=== PATIENT | male | born 1945 | race Caucasian/White ===

== ENCOUNTER 2016-05-27 10:13 | Outpatient (CLI) | payer MEDICARE, OTHER | END 2016-05-27 10:14 | disposition home or self-care (01) | DX: G47.33 Obstructive sleep apnea (adult) (pediatric) (principal) | CPT/HCPCS: 99214; G0463 ==

== ENCOUNTER 2017-06-16 10:17 | Outpatient (CLI) | payer MEDICARE, OTHER | END 2017-06-16 10:18 | disposition home or self-care (01) | LOC: SC 10:17 | PROVIDERS: ATTEND Nurse Practitioner Family | DX: G47.33 Obstructive sleep apnea (adult) (pediatric) (principal) | CPT/HCPCS: 99214; G0463; 99212 ==

== ENCOUNTER 2017-08-18 10:20 | Outpatient (CLI) | payer MEDICARE, OTHER | END 2017-08-18 10:21 | disposition home or self-care (01) | LOC: SC 10:20 | PROVIDERS: ATTEND Nurse Practitioner Family | DX: G47.33 Obstructive sleep apnea (adult) (pediatric) (principal) | CPT/HCPCS: 99214; G0463; 99212 ==

== ENCOUNTER 2018-11-01 10:33 | Outpatient (CLI) | payer MEDICARE, OTHER | END 2018-11-01 10:34 | disposition home or self-care (01) | LOC: SC 10:33 | PROVIDERS: ATTEND Nurse Practitioner Family | DX: G47.33 Obstructive sleep apnea (adult) (pediatric) (principal) | CPT/HCPCS: 99214; G0463; 99212 ==

== ENCOUNTER 2019-03-20 09:20 | Outpatient (CLI) | payer MEDICARE, OTHER ==
--- NOTE | 2019-03-20 14:03 | CT Report ---
Reason: CHRONIC SINUSITIS Procedure Date: 03/20/2019 Accession Number: [id number] / [id number] Procedure: CT - Sinuses CPT Code: Final Report FULL RESULT: EXAM: CT SINUS EXAM DATE: 03/20/2019 09:56 AM. HISTORY: 74-year-old with chronic sinusitis type symptoms. Evaluate for sinus pathology. COMPARISONS: SINUS 11/03/2007 8:29 AM. TECHNIQUE: Routine multi-axial CT imaging performed through the sinuses. Iodinated IV contrast: None. Reconstructions: Multiplanar reformats. In accordance with CT protocol optimization, one or more of the following dose reduction techniques were utilized for this exam: automated exposure control, adjustment of mA and/or KV based on patient size, or use of iterative reconstructive technique. FINDINGS: RIGHT Frontal: Normal. Ethmoid: Mild mucosal thickening. Maxillary: Mild mucosal thickening. Sphenoid: Moderate mucosal retention cyst versus polyp with mild mucosal thickening. There is hyperdensity seen within the mucosal retention cyst or polyp. Drainage Pathways: There is obstruction of the sphenoethmoidal recess. There is minimal mucosal thickening of the frontal recess and ostiomeatal unit. LEFT Frontal: Normal. Ethmoid: Minimal mucosal thickening. Maxillary: Small maxillary mucosal retention cyst versus polyp with mild mucosal thickening. There is hyperostosis of the farfan of the maxillary sinus. Sphenoid: Normal. Drainage Pathways: Post surgical changes of maxillary antrostomy and uncinectomy. Visualized major paranasal sinus change pathways appear patent. Nasal Cavity: There is a small right and moderate-sized left nael bullosa. There appears to be opacification of the right nael bullosa with minimal mucosal thickening of the left nael bullosa. There is rightward bowing of the bony nasal septum. Osseous Structures: Unremarkable. Orbits: Unremarkable. Other: Punctate calcification seen within the right paramedian frontal scalp (series 3, image 108). IMPRESSION: 1. There appear to be postsurgical changes of prior left maxillary antrostomy and uncinectomy. 2. There is moderate right and small left maxillary mucosal retention cyst versus polyps. 3. There is mild mucosal thickening of the right ethmoid air cells, right sphenoid sinus, bilateral maxillary sinuses. There is minimal mucosal thickening of the left ethmoid air cells. 4. There is mucosal obstruction of the right sphenoethmoidal recess. RADIA
== END 2019-03-20 09:21 | disposition home or self-care (01) ==
LOC: DI 09:20
PROVIDERS: ATTEND Family Medicine
DX: J34.89 Other specified disorders of nose and nasal sinuses (principal); J32.4 Chronic pansinusitis
CPT/HCPCS: 70486

== ENCOUNTER 2019-05-03 13:12 | Outpatient (CLI) | payer MEDICARE, OTHER ==
[2019-05-03 14:11] VITALS: BP 130/70
--- NOTE | 2019-05-03 14:11 | SLEEP CARE CONSULTATION ---
Information from patient questionnaire entered by Kelin Angulo. I have reviewed and concur with the information entered by Kelin Angulo. This document represents the service I personally performed and the decisions made by me, Yamilet Bingham, RN, MSN, TRANSMITTER ENGINEER IN CHARGE. History of Present Illness Previous diagnosis: Mild, Obstructive Sleep Apnea-Hypopnea Syndrome AHI: 5.1 Reason for follow up: six month Equipment type: CPAP Equipment obtained from: [facility] Mask style: Full face Mask brand: Resmed (Air Touch) Backup mask available: Yes Last cushion change: a month ago CPAP Compliance Data - Data Reviewed with Patient Average duration of nightly device use: 8.45 Compliance rate %: 99.4 (180 days) Current pressure setting (cmH2O): 15-20 Humidity settin Heated hose settin Average residual AHI: 1.9 Average large leak: 30 sec Subjective Patient concerns: reports: air blowing in eyes, other (Water under eyes (bags) - saw eye doctor and wonders if due to pressure/ also saw metallurgical technician to see if allergies). denies: aerophagia, mask discomfort, mask leak noise, condensation in mask/hose, nasal congestion, dry mouth, nose, throat, epistaxis Observed to snore while using device: No Current pressure setting perceived as: too high (a few times a week) On therapy, patient: reports: sleeping better, awakening more refreshed, being more awake and alert during the day, more rested overall. denies: drowsiness while driving Initial [place] Sleepiness Scale score: 8 Current [place] Sleepiness Scale score: 4 Allergies and Home Medications Known drug allergies: No Home medication list reviewed: Yes (same as last visit except stopped Nystatin, trimincinolone and Fish oil ) Allergy and home medication list: Medication Name (generic/name brand) Strength & Dosage Losartan Potassium 100 mg tab one daily Montelukast Sodium 10mg tab one daily Atorvastatin 10mg tab daily Vitamin D 3 1000 units daily Vitamin B-12 1000mcg tab one daily Glucosamine Sulfate 500mg tab 3 BID Medial Marijuana, topical Use as needed Olopatadine 0.2% eye drops One drop daily to affected eyes Fluticasone Propionate 50mcg/inh 2 nasal inhalations daily azelastine nasal spray aerosol 137mcg daily Review of Systems Review of systems same as previous: Yes Physical Exam Blood Pressure: 130/70 Cuff size: long Heart Rate: 63 O2 Saturation: 97 Height: 5 ft 8 in Weight: 236 lb 9.6 oz Body Mass Index: 35.9 BMI Classification: Obesity Class 2 Impression and Plan 1. Obstructive Sleep Apnea-Hypopnea Syndrome, mild but severe supine, with good treatment compliance and good apnea control. On CPAP therapy, the patient has better sleep quality and is more rested overall. For his edema noted under eyes after using CPAP, I fitted him with an Camilla View large full face mask. He is not due for a new mask until June. The edema could be from over tightening of his Air Touch mask and its placement close to eye reducing circulation. He sleeps on left side and edema generally worse on left. This mask sits lower and with use of CPAP pillow should have less pressure below eyes. Spouse has noted significant mask steinberg on face when he takes off mask. Patient cautioned not to over tighten mask with rationale explained. Prescription given specific to mask for replacement. If this mask is no better, he is to request a mask refitting before his next headgear due in June. He has seen both the metallurgical technician thinking it was allergies and his eye doctor who prescribed exercises. Since the pressure is too high sometimes and he seems to be using lower range, I will reduce his CPAP pressure to [id number]. He is to call me if pressure change uncomfortable or more sleep paralysis when sleeping supine. Patient's apnea severity and rationale for treatment to reduce apnea, improve sleep quality and reduce cardiovascular and cerebrovascular events was reviewed. I also reviewed the benefit of consistent device use of CPAP for hypertension. Since his apnea is more severe supine, he is advised to avoid sleep if unable to use CPAP with pillow positioning. * * Change CPAP pressure to 14-16 cmH2O * Try Camilla View mask * Do not over tighten mask * Notify me if snoring with mask or feeling that the pressure is too much or too little * Attempt to lose weight * Call this office if any problems using CPAP * Return for follow up in 1 year, or sooner if concerns arise Time Spent with Patient (minutes): 35 I spent 100% of this visit face to face with the patient with greater than 50% of this was spent time counseling the patient and coordination of care.
== END 2019-05-03 13:13 | disposition home or self-care (01) ==
LOC: SC 13:12
PROVIDERS: ATTEND Nurse Practitioner Family
DX: G47.33 Obstructive sleep apnea (adult) (pediatric) (principal); E66.9 Obesity, unspecified; Z68.35 Body mass index [BMI] 35.0-35.9, adult
CPT/HCPCS: 99214; G0463; 99212

== ENCOUNTER 2020-04-30 13:15 | Outpatient (CLI) | payer MEDICARE, OTHER ==
--- NOTE | 2020-04-30 11:01 | SLEEP CARE CONSULTATION ---
Information from patient questionnaire entered by Kelin Angulo. I have reviewed and concur with the information entered by Kelin Angulo. This document represents the service I personally performed and the decisions made by me, Yamilet Bingham, RN, MSN, NETWORK ANALYST. History of Present Illness Service Date and Time: 04/30/2020 1030 Previous diagnosis: Mild, Obstructive Sleep Apnea-Hypopnea Syndrome AHI: 5.1 (in 2011) Reason for follow up: annual (last seen 04/2019) Equipment type: CPAP Equipment obtained from: [facility] (getting supplies as needed) Mask style: Full face Backup mask available: Yes (old mask) Last cushion change: 10 days ago Prior sleep studies: Yes Year and Where: 2011 - [facility] Type of Sleep Study: Polysomnography CPAP Compliance Data - Data Reviewed with Patient Average duration of nightly device use: 9 hr 15 min Compliance rate %: 97.8 (180 days) Current pressure setting (cmH2O): 14-16 Humidity settin Heated hose settin Average residual AHI: 1.8 Average large leak: 34 sec Subjective Patient concerns: reports: aerophagia (once a week), dry mouth, nose, throat (none now after adjusting humidity). denies: mask discomfort, air blowing in eyes, mask leak noise, condensation in mask/hose, nasal congestion, epistaxis Observed to snore while using device: No Current pressure setting perceived as: comfortable On therapy, patient: reports: sleeping better, awakening more refreshed, being more awake and alert during the day, more rested overall. denies: drowsiness while driving Initial [place] Sleepiness Scale score: 7 (in 2011) Current [place] Sleepiness Scale score: 7 Allergies and Home Medications Known drug allergies: No Home medication list reviewed: Yes (added tamulosin HS ) Review of Systems Review of systems same as previous: No (sinus surgery July 2019 with better nasal breathing) Physical Exam Height: 5 ft 8 in Weight: 210 lb (lost 25 pounds ) Body Mass Index: 31.9 BMI Classification: Obese Impression and Plan 1. Obstructive Sleep Apnea-Hypopnea Syndrome, mild with very severe apnea supine, with fair treatment compliance and good apnea control. On CPAP therapy, the patient has better sleep quality and is more rested overall. To reduce symptoms of aerophagia, the CPAP pressure will be reduced to 12- 14 cmH2O. Patient advised to contact me if this does not reduce symptoms or if pressure change uncomfortable. Patient has lost weight which has probably contributed to his aerophagia . Currently patients BMI is 35.9 obesity class . Obesity increases the risk of apnea, CPAP pressure requirements and overall health risks especially cardiovascular and diabetes. Thus patient is advised to continue to lose weight. Weight loss can be done with reducing portion size, reducing refined foods and balancing content with vegetables, fruit and protein. In addition tracking food intake will allow awareness of how to modify diet to achieve weight loss goals. Also eating more slowly will allow more awareness of food intake and enjoyment of food while assisting patient to modify intake at each meal. A diet consultation can be helpful in achieving optimal weight loss goals. Patient encouraged to discuss their weight loss goals with their PCP and consider a referral to a inside barrel lathe operator. The patient's auto CPAP pressure was changed to 12-14 cmH2O to accommodate future weight loss. Symptoms to report for additional pressure adjustment discussed. Patient's apnea severity and rationale for treatment to reduce apnea, improve sleep quality and reduce cardiovascular and cerebrovascular events was reviewed. I also reviewed the benefit of consistent device use of CPAP for hypertension. Since patient has more severe apnea in supine position, patient advised to avoid supine sleep with pillow positioning if unable to use CPAP while ill or if without electricity to reduce apnea risk.He uses a So Clean device for his CPAP equipment.Thus he was informed of FDA warning and how to find online. He is advised to stop using the heavy cleaner and use usual cleaning routine. * * Changeauto CPAP pressure to 12- 14 cmH2O * Notify me if snoring with mask or feeling that the pressure is too much or too little * Stop So Clean * avoid supine sleep if unable to use CPAP. * Consider a diet consultation * Continue to lose weight * Call this office if any problems using CPAP * Return for follow up in 1 year , or sooner if concerns arise Follow up recommended for: Weight management Visit Type: Telehealth Phone ([facility]) Patient Location: Home Other Participants: Spouse/Significant Other Location of Provider: Home Patient agrees and consents to this telehealth visit type: Yes Patient agrees to have their insurance billed: Yes Time Spent with Patient (minutes): 24 and 6 minutes documentation after visit. Provider Statement: I spent 100% of the Telehealth Phone Call with the patient with greater than 50% spent counseling the patient and coordination of care.
== END 2020-04-30 13:16 | disposition home or self-care (01) ==
LOC: SC 13:15
PROVIDERS: ATTEND Nurse Practitioner Family
DX: G47.33 Obstructive sleep apnea (adult) (pediatric) (principal); E66.9 Obesity, unspecified; Z68.31 Body mass index [BMI] 31.0-31.9, adult

== ENCOUNTER 2021-02-10 10:43 | Outpatient (CLI) | payer MEDICARE, OTHER ==
--- NOTE | 2021-02-10 11:40 | SLEEP CARE CONSULTATION ---
Information from patient questionnaire entered by Mart Trevino MA. I have reviewed and concur with the information entered by Mart Trevino MA. This document represents the service I personally performed and the decisions made by , Patsy Melendez ARNP. History of Present Illness Service Date and Time: 02/10/2021 1043 Previous diagnosis: Mild, Obstructive Sleep Apnea-Hypopnea Syndrome AHI: 5.1 (in 2011) Reason for follow up: other (10 month wants new mask (nasal)) Equipment type: CPAP Equipment obtained from: [facility] (getting supplies as needed) Mask style: Full face Backup mask available: Yes (old mask) Last cushion change: 2.5 weeks Prior sleep studies: Yes Year and Where: 2011 - [facility] Type of Sleep Study: Polysomnography HPI additional information: KATHY KO was diagnosed to have mild, AHI 5.1, obstructive sleep apnea- hypopnea syndrome and returned today with spouse for CPAP therapy 10 month follow-up. Sleep Study - Results Type of Sleep Study: Polysomnography Prior sleep studies: Yes Year and Where: 2011 - [facility] CPAP Compliance Data - Data Reviewed with Patient Average duration of nightly device use: 8 hours 49 minutes Compliance rate %: 100 Current pressure setting (cmH2O): 12 - 14 Humidity settin Heated hose settin Average residual AHI: 1.3 Average large leak: 40 seconds Subjective Missed days of use due to: reports: other (power outage) Patient concerns: reports: air blowing in eyes (his eyes are dry and puffy in the morning), mask leak noise. denies: aerophagia, mask discomfort, condensation in mask/hose, nasal congestion, dry mouth, nose, throat, epistaxis, other Observed to snore while using device: No Current pressure setting perceived as: comfortable On therapy, patient: reports: sleeping better, awakening more refreshed, being more awake and alert during the day, more rested overall, other (has pain issues at night that wakes him up). denies: drowsiness while driving Initial [place] Sleepiness Scale score: 7 (in 2012) Current [place] Sleepiness Scale score: 11 Allergies and Home Medications Home medication list reviewed: Yes (changes) Review of Systems Review of systems same as previous: Yes (no changes) Physical Exam Vital signs obtained and entered by: Jessee Trevino CMA Blood Pressure: 133/73 (left) Cuff size: wrist Heart Rate: 73 O2 Saturation: 97 Height: 5 ft 8 in Weight: 220 lb 0.271 oz Body Mass Index: 33.4 BMI Classification: Obese Impression and Plan 1. Obstructive Sleep Apnea-Hypopnea Syndrome, mild, with excellent treatment compliance and good apnea control. On CPAP therapy, the patient has better sleep quality and is more rested overall. Patient had surgery on his nose so he can breathe through it better. He has had lots of issues with air blowing into his eyes with current mask and his eyes feeling dry and swollen. He saw an ENT specialist who said he had air trapped in his eyes possibly due to his CPAP. Patient has been using a full face mask and would like to try a nasal pillow type of mask. He also will need a chin strap because he usually sleeps with mouth open. I will write for a mask refitting for a nasal pillow style and a chin strap. I informed the patient that [employer] has a recall on several devices like the patients machine. Patient was encouraged to register their device online with [employer] for the recall to see if their device is affected. If their device is affected they should start a claim. Patient denies any black particles seen in machine or hoses, any unusual odors coming from device. Patient has not experienced any physical symptoms such as upper airway irritation, headache, skin or eye irritation, asthma, nausea/vomiting, difficulty breathing or chest pain. If patient is not able to sleep due to waking up choking, gasping for air or other respiratory distress that they may decide to continue using it until it is either replaced or repaire d. Patient has an older device that may not be on the recall that he may switch to using in the meantime. Patient voiced understanding and agreement with plan. Patient's apnea severity and rationale for treatment to reduce apnea, improve sleep quality and reduce cardiovascular and cerebrovascular events was reviewed. I also reviewed the benefit of consistent device use of CPAP for hypertension. Patient was encouraged to lose weight for their overall health and to reduce apneas. * Continue auto CPAP pressure at 12-14 cmH2O * Try nasal pillows mask with chin strap * Patient to register his device with [employer] for recall * Patient has older device that he will see if he can use until his device is replaced * Mask refitting for nasal mask * Notify me if snoring with mask or feeling that the pressure is too much or too little * Attempt to lose weight * Call this office if any problems using CPAP * Return for follow up in 1 year, or sooner if concerns arise Counseling Topics: Spare mask, Weight loss health impact Visit Type: In Office Other Participants: Spouse/Significant Other Time Spent with Patient (minutes): 24 Provider Statement: I spent 100% of the Face to Face Visit with the patient with greater than 50% spent counseling the patient and coordination of care.
[2021-02-10 11:41] VITALS: BP 133/73
== END 2021-02-10 10:44 | disposition home or self-care (01) ==
LOC: SC 10:43
PROVIDERS: ATTEND Nurse Practitioner Family
DX: G47.33 Obstructive sleep apnea (adult) (pediatric) (principal); E66.9 Obesity, unspecified; Z68.33 Body mass index [BMI] 33.0-33.9, adult
CPT/HCPCS: 99213; G0463; 99212

== ENCOUNTER 2022-03-16 12:43 | Outpatient (CLI) | payer MEDICARE, OTHER ==
[2022-03-16 13:23] VITALS: BP 126/70
--- NOTE | 2022-03-16 13:23 | SLEEP CARE CONSULTATION ---
Information from patient questionnaire entered by Francesca Arboleda. I have reviewed and concur with the information entered by Francesca Arboleda. This document represents the service I personally performed and the decisions made by me, Patsy Melendez ARNP. History of Present Illness Service Date and Time: 03/16/2022 1243 Previous diagnosis: Mild, Obstructive Sleep Apnea-Hypopnea Syndrome AHI: 5.1 (in 2011) Reason for follow up: annual (LAST SEEN 02/2021) Accompanied by: Spouse Equipment type: CPAP (Dreamstation 2) Equipment obtained from: Other ([facility]; getting supplies as needed) Mask style: Nasal pillows Backup mask available: Yes (old mask) Last cushion change: 1 week Prior sleep [facility]: Yes [facility] and [facility] Type of Sleep Study: Polysomnography HPI additional information: KATHY KO was diagnosed to have mild, AHI 5.1, obstructive sleep apnea- hypopnea syndrome and returned today for CPAP therapy annual follow-up. Sleep Study - Results Type of Sleep Study: Polysomnography Prior sleep studies: Yes Year and Where: [facility] CPAP Compliance Data - Data Reviewed with Patient Average duration of nightly device use: 9 HRS, 2 MIN 42SEC Compliance rate %: 98.9 (09/15/21-03/13/22; 178/180 days used) Current pressure setting (cmH2O): 12-12 Average residual AHI: 0.7 Central apnea: 0.2 Obstructive apnea: 0.1 Subjective Missed days of use due to: reports: other (power outage) Patient concerns: reports: mask discomfort, air blowing in eyes (wearing sleeping mask), dry mouth, nose, throat, other (slight nares sorness). denies: aerophagia, mask leak noise, condensation in mask/hose, nasal congestion, epistaxis Observed to snore while using device: No Current pressure setting perceived as: comfortable On therapy, patient: reports: sleeping better, awakening more refreshed, being more awake and alert during the day, more rested overall. denies: drowsiness while driving Initial [place] Sleepiness Scale score: 7 (in 2011) Current [place] Sleepiness Scale score: 10 (03/16/2022) Allergies and Home Medications Drug allergies reviewed: Yes (NKDA) Home medication list reviewed: Yes (no changes) Review of Systems Review of systems same as previous: Yes (no changes) Physical Exam Vital signs obtained and entered by: FRANCESCA Sheikh MA Blood Pressure: 126/70 (left arm) Cuff size: regular Heart Rate: 63 O2 Saturation: 96 Height: 5 ft 8 in Weight: 233 lb 9.6 oz Body Mass Index: 35.5 BMI Classification: Obese Impression and Plan 1. Obstructive Sleep Apnea-Hypopnea Syndrome, mild, with good treatment compliance and good apnea control. On CPAP therapy, the patient has better sleep quality and is more rested overall. Patient has significant improvement of their sleep apnea and are satisfied with current CPAP therapy. Patient sometimes feels the pressure could be less. He switched to a nasal pillows mask because he had m ore swelling in his face with the full face mask. He will oral vent sometimes according to his and she encourages him to wear a chinstrap. He will at times but it is a lot on his head/face. I advised him that he could try some mouth strips to keep mouth closed that he can obtain from local pharmacy and he voiced understanding. Patient's apnea severity and rationale for treatment to reduce apnea, improve sleep quality and reduce cardiovascular and cerebrovascular events was reviewed. I also reviewed the benefit of consistent device use of CPAP for hypertension. 2. Obesity, unspecified. Currently patients BMI is 35.5. Obesity increases the risk of apnea, CPAP pressure requirements and overall health risks especially cardiovascular and diabetes. Thus patient is advised to lose weight. * Change CPAP pressure to 11 cmH2O * Update supplies * Notify me if snoring with mask or feeling that the pressure is too much or too little * Attempt to lose weight * Call this office if any problems using CPAP * Return for follow up in 1 year, or sooner if concerns arise Counseling Topics: Spare mask, Weight loss health impact Visit Type: In Office Other Participants: Spouse/Significant Other Time Spent with Patient (minutes): 21 Provider Statement: I spent 100% of the Face to Face Visit with the patient with greater than 50% spent counseling the patient and coordination of care.
== END 2022-03-16 12:44 | disposition home or self-care (01) ==
LOC: SC 12:43
PROVIDERS: ATTEND Nurse Practitioner Family
DX: G47.33 Obstructive sleep apnea (adult) (pediatric) (principal); E66.9 Obesity, unspecified; Z68.35 Body mass index [BMI] 35.0-35.9, adult
CPT/HCPCS: 99213; G0463; 99212

== ENCOUNTER 2022-12-15 10:14 | Outpatient (CLI) | payer MEDICARE, OTHER ==
--- NOTE | 2022-12-15 10:54 | Sleep Patient Instructions ---
Sleep Center Visit Summary - Patient Visit Information Reason for Visit: 8 MONTH FOLLOW UP FOR PAP THERAPY - Patient Instructions Additional Instructions: You were here for follow up of CPAP therapy. You will be continued on CPAP therapy with pressure at 12 cmH2O. Please let us know if the pressure change is uncomfortable and we can make further adjustments of the pressure. I put in a change for the full face mask and updated DME prescription with [facility]. You should follow up with sleep care in 12 months. You may contact us sooner for any questions or concerns. - Clinic Information Contact: [facility] [address] [place] [id number] [email or web address] T: [phone]
--- NOTE | 2022-12-15 10:59 | SLEEP CARE CONSULTATION ---
Information from patient questionnaire entered by Francesca Arboleda. I have reviewed and concur with the information entered by Francesca Arboleda. This document represents the service I personally performed and the decisions made by me, Patsy Melendez ARNP. History of Present Illness Service Date and Time: 12/15/2022 1014 Previous diagnosis: Mild, Obstructive Sleep Apnea-Hypopnea Syndrome AHI: 5.1 (in 2011) Reason for follow up: other (8 MONTH F/U ) Equipment type: CPAP (Dreamstation 2) Equipment obtained from: Other ([facility]; getting supplies as needed) Mask style: Full face Mask brand: Resmed (AirTouch F20) Backup mask available: Yes (other mask) Last cushion change: 2-3 weeks Prior sleep studies: Yes [facility] and [facility] Type of Sleep Study: Polysomnography HPI additional information: KATHY KO was diagnosed to have mild, AHI 5.1, obstructive sleep apnea- hypopnea syndrome and returned today for CPAP therapy 8 month follow-up. Sleep Study - Results Type of Sleep Study: Polysomnography Prior sleep studies: Yes [facility] and Where[facility] CPAP Compliance Data - Data Reviewed with Patient Average duration of nightly device use: 9 hours 15 minutes Compliance rate %: 100 (180/180 days used) Current pressure setting (cmH2O): 11 Average residual AHI: 0.9 Central apnea: 0.3 Obstructive apnea: 0.1 Hypopnea: 0.5 Average large leak: 1 mins 12 secs Subjective Patient concerns: reports: air blowing in eyes, mask leak noise, dry mouth, nose, throat, other (headaches, but not because of CPAP). denies: aerophagia, mask discomfort, condensation in mask/hose, nasal congestion, epistaxis Observed to snore while using device: No Current pressure setting perceived as: comfortable (may be a little low) On therapy, patient: reports: sleeping better, awakening more refreshed, being more awake and alert during the day, more rested overall. denies: drowsiness while driving Initial [place] Sleepiness Scale score: 7 (in 2011) Current [place] Sleepiness Scale score: 16 (12/15/22) Allergies and Home Medications Known drug allergies: No Drug allergies reviewed: Yes Home medication list reviewed: Yes (no changes) Review of Systems Review of systems same as previous: Yes (no changes) Physical Exam Vital signs obtained and entered by: FRANCESCA Sheikh MA Blood Pressure: 128/62 (LEFT ARM) Cuff size: regular Heart Rate: 74 O2 Saturation: 96 Height: 5 ft 8 in Weight: 222 lb 3.2 oz Body Mass Index: 33.7 BMI Classification: Obese Impression and Plan 1. Obstructive Sleep Apnea-Hypopnea Syndrome, mild, with good treatment compliance and good apnea control. On CPAP therapy, the patient has better sleep quality and is more rested overall. He states that he feels that he would like a little more pressure. The patients pressure will be changed to autoCPAP 12 cmH20 for patient comfort. Patient advised to contact me if pressure change is uncomfortable so that it can be adjusted. Goals for apnea control discussed. He states he has been more tired, falling asleep on the couch in front of the television. He was talking to his provider who suggested he come in and see us. He also suggested that he change his mask type since he was having difficulties getting a good seal with the nasal pillows mask. He has been using an AirTouch F20 fullface mask for the last 3 weeks. He states he has noticed a difference in improvement of his fatigue during the day but knows he needs a change of his prescription to be able to order more supplies and the fullface mask. I will add this to his prescription and fax an updated prescription to his [employer] company. Patient's apnea severity and rationale for treatment to reduce apnea, improve sleep quality and reduce cardiovascular and cerebrovascular events was reviewed. I also reviewed the benefit of consistent device use of CPAP for hypertension. 2. Obesity, unspecified. Currently patients BMI is 33.7. Obesity increases the risk of apnea, CPAP pressure requirements and overall health risks especially cardiovascular and diabetes. Thus patient is advised to lose weight. * Change mask to a full face mask, ResMed AirTouch F20, medium cushion * Change auto CPAP pressure to 12 cmH2O * Update supplies * Notify me if snoring with mask or feeling that the pressure is too much or too little * Attempt to lose weight * Call this office if any problems using CPAP * Return for follow up in 1 year, or sooner if concerns arise Counseling Topics: Spare mask, Weight loss health impact Prescriptions: Device supplies Visit Type: In Office Time Spent with Patient (minutes): 24 Provider Statement: I spent 100% of the Face to Face Visit with the patient with greater than 50% spent counseling the patient and coordination of care.
[2022-12-15 11:00] VITALS: BP 128/62; O2SAT 96
== END 2022-12-15 10:15 | disposition home or self-care (01) ==
LOC: SC 10:14 → EEVIPCON 10:40
PROVIDERS: ATTEND Nurse Practitioner Family
DX: G47.33 Obstructive sleep apnea (adult) (pediatric) (principal); E66.9 Obesity, unspecified; Z68.33 Body mass index [BMI] 33.0-33.9, adult
CPT/HCPCS: 99213; G0463; 99212

== ENCOUNTER 2023-12-27 14:55 | Outpatient (CLI) | payer MEDICARE, OTHER ==
--- NOTE | 2023-12-27 15:26 | Sleep Patient Instructions ---
Sleep Center Visit Summary - Patient Visit Information Reason for Visit: Annual follow-up - Patient Instructions Additional Instructions: You will continue with CPAP therapy with pressure set at 12 cmH2O. A supply prescription will be updated with your DME supplier. We encourage you to continue to try to lose weight. Please follow up with the sleep care office in 1 year. - Clinic Information Contact: [facility] [address] [place] [address] [email or web address] T: [phone]
--- NOTE | 2023-12-27 15:29 | SLEEP CARE CONSULTATION ---
Information from patient questionnaire entered by Whit Arboleda. I have reviewed and concur with the information entered by Whit Arboleda. This document represents the service I personally performed and the decisions made by me, Patsy Melendez ARNP. History of Present Illness Service Date and Time: 12/27/2023 145 Previous diagnosis: Mild, Obstructive Sleep Apnea-Hypopnea Syndrome AHI: 5.1 (in 2011) Reason for follow up: annual (LAST SEEN 03/18/24) Accompanied by: Spouse (Kallie) Equipment type: CPAP (Dreamstation 2) Equipment obtained from: Other ([facility]; getting supplies as needed) Mask style: Full face Mask brand: Resmed (AirTouch F20) Backup mask available: Yes Last cushion change: 2 weeks Prior sleep studies: Yes Year and Where: 2011 - [facility] Type of Sleep Study: Polysomnography HPI additional information: KATHY KO was diagnosed to have mild, AHI 5.1, obstructive sleep apnea- hypopnea syndrome and returned today with spouse for CPAP therapy annual follow- up. Sleep Study - Results Type of Sleep Study: Polysomnography Prior [facility]: Yes [facility] Compliance Data - Data Reviewed with Patient Average duration of nightly device use: 9 HRS 19 MINS 38 SECS Compliance rate %: 100 (06/25/23-12/21/23; 180/180 days used) Current pressure setting (cmH2O): 12 Average residual AHI: 0.7 Central apnea: 0.2 Obstructive apnea: 0.2 Hypopnea: 0.3 Average large leak: 1 mins 15 secs Subjective Patient concerns: reports: air blowing in eyes (occasional, mask needs adjusting), dry mouth, nose, throat (dry mouth). denies: aerophagia, mask discomfort, mask leak noise, condensation in mask/hose, nasal congestion, epistaxis Observed to snore while using device: No Current pressure setting perceived as: comfortable On therapy, patient: reports: sleeping better, awakening more refreshed, being more awake and alert during the day, more rested overall. denies: drowsiness while driving Initial [place] Sleepiness Scale score: 7 (in 2011) Current [place] Sleepiness Scale score: 15 (12/27/23) Allergies and Home Medications Known drug allergies: No Drug allergies reviewed: Yes Home medication list reviewed: Yes (no changes) Allergy and home medication list: Allergies No Known Drug Allergies Allergy (Verified 12/27/23 15:02) Review of Systems Review of systems same as previous: Yes (NO CHANGE) Physical Exam Vital signs obtained and entered by: WHIT Sheikh MA Blood Pressure: 143/68 (RIGHT ARM) Cuff size: regular Heart Rate: 65 O2 Saturation: 97 Height: 5 ft 8 in Weight: 215 lb Weight change since last visit: 7 lb loss Body Mass Index: 32.6 BMI Classification: Obese Impression and Plan 1. Obstructive Sleep Apnea-Hypopnea Syndrome, mild, with good treatment compliance and good apnea control. On CPAP therapy, the patient has better sleep quality and is more rested overall. Patient has significant improvement of their sleep apnea and is satisfied with current CPAP therapy. Patient denies problems with oral dryness, nasal congestion, epistaxis, skin irritation or aerophagia. Patient's apnea severity and rationale for treatment to reduce apnea, improve sleep quality and reduce cardiovascular and cerebrovascular events was reviewed. I also reviewed the benefit of consistent device use of CPAP for hypertension. 2. Obesity, unspecified. Currently patients BMI is 32.6. He has lost weight. Obesity increases the risk of apnea, CPAP pressure requirements and overall health risks especially cardiovascular and diabetes. Thus patient is advised to continue to try to lose weight. * Continue auto CPAP pressure at 12 cmH2O * Update supply prescription * Notify me if snoring with mask or feeling that the pressure is too much or too little * Attempt to lose weight * Call this office if any problems using CPAP * Return for follow up in 12 months, or sooner if concerns arise Counseling Topics: Spare mask, Weight loss health impact Prescriptions: Device supplies Follow up with Sleep Care in: 1 year Visit Type: In Office Time Spent with Patient (minutes): 21 Provider Statement: I spent 100% of the Face to Face Visit with the patient with greater than 50% spent counseling the patient and coordination of care.
[2023-12-27 15:32] VITALS: BP 143/68; O2SAT 97
== END 2023-12-27 14:56 | disposition home or self-care (01) ==
LOC: SC 14:55
PROVIDERS: ATTEND Nurse Practitioner Family
DX: G47.33 Obstructive sleep apnea (adult) (pediatric) (principal); E66.9 Obesity, unspecified; Z68.32 Body mass index [BMI] 32.0-32.9, adult
CPT/HCPCS: 99213; G0463; 99212